=== PATIENT | male | born 1945 | race Caucasian/White ===

== ENCOUNTER → 2016-08-28 | Outpatient (CLI) | payer OTHER | LOC: BHFA 10:30 | PROVIDERS: ATTEND Internal Medicine Cardiovascular Disease | DX: I47.2 Ventricular tachycardia (principal) ==

== ENCOUNTER → 2016-10-28 | Outpatient (CLI) | payer OTHER | LOC: BMCIMAGING 14:50 | PROVIDERS: ATTEND Internal Medicine Rheumatology | DX: M16.0 Bilateral primary osteoarthritis of hip (principal) ==

== ENCOUNTER → 2016-11-17 | Outpatient (CLI) | payer OTHER | LOC: BHFA 13:00 | PROVIDERS: ATTEND Internal Medicine Interventional Cardiology | DX: I25.10 Atherosclerotic heart disease of native coronary artery without angina pectoris (principal); Z79.899 Other long term (current) drug therapy ==

== ENCOUNTER → 2016-12-07 | Outpatient (CLI) | payer OTHER | LOC: FIMAGING 09:57 | PROVIDERS: ATTEND Orthopaedic Surgery | DX: M17.11 Unilateral primary osteoarthritis, right knee (principal); M25.461 Effusion, right knee; Z01.818 Encounter for other preprocedural examination ==

== ENCOUNTER 2016-12-30 06:04 | Observation (INO) | payer OTHER ==
[2016-12-01 11:33] LABS: % IMMATURE GRANULYOCYTES 0.4 % (0.0-1.1); ABSOLUTE IMMATURE GRANULOCYTES 0.02 10^3/uL (0.00-0.10); ADD DIFF? NO; ADD MORPH? NO; ADD SCAN? NO; ATYPICAL LYMPHOCYTE FLAG 40 (0-99); FRAGMENT RBC FLAG 0 (0-99); HEMATOCRIT 43.6 % (40.0-51.0); HEMOGLOBIN 14.5 g/dL (13.7-17.5); LEFT SHIFT FLG 20 (0-99); LIPEMIA HEMOLYSIS FLAG 80 (0-99); MEAN CELL HEMOGLOBIN 29.7 pg (27.9-34.1); MEAN CELL HEMOGLOBIN CONCENTR. 33.3 g/dL (32.4-36.7); MEAN CELL VOLUME 89.3 fL (81.5-99.8); PLATELET CLUMPS FLAG 0 (0-99); PLATELET COUNT 196 10^3/uL (150-400); RED BLOOD CELL COUNT 4.88 10^6/uL (4.40-6.38); RED CELL DISTRIBUTION WIDTH 13.2 % (11.5-15.2)
[2016-12-01 11:57] LABS: ALANINE AMINOTRANSFERASE 32 IU/L (21-72); ALBUMIN 3.9 g/dL (3.5-5.0); ALKALINE PHOSPHATASE 72 IU/L (38-126); ANION GAP 10 mEq/L (8-16); ASPARTATE AMINOTRANSFERASE 20 IU/L (17-59); CALCIUM 9.3 mg/dL (8.5-10.4); CARBON DIOXIDE 25 mEq/l (22-31); CHLORIDE 104 mEq/L (97-110); CREATININE 0.9 mg/dL (0.7-1.3); GLOMERULAR FILTRATION RATE > 60; GLUCOSE 100 mg/dL (70-100); POTASSIUM 3.9 mEq/L (3.5-5.2); SODIUM 139 mEq/L (134-144); TOTAL PROTEIN 6.3 g/dL (6.3-8.2)
[~2016-12-30 06:04] MED LIST: ACETAMINOPHEN 325 MG TAB ONE; ACETAMINOPHEN 325 MG TAB PO ONE; CEFAZOLIN 2 GM/DEXTROSE/100 ML BAG IV ONE; DEXAMETHASONE 4 MG/ML VIAL IVP ONE; DEXAMETHASONE 4 MG/ML VIAL ONE; FAMOTIDINE 20 MG TAB ONE; FAMOTIDINE 20 MG TAB PO ONE; LIDOCAINE 1% 2 ML INJ ONE; ROPIVACAINE 0.2% 80 MG, EPINEPHrine 0.2 MG, KETOROLAC TROMETHAMINE 30 MG in BAG 0 ML IU ONE; TRANEXAMIC ACID 3,000 MG in NS 50 ML IRR ONE; ceFAZolin 2 GM/DEXTROSE 100 ML IV ONE
[2016-12-30] MEDS ORDERED: LIDOCAINE 1% 2 ML INJ ID PRN (06:24)
[2016-12-30] MEDS ORDERED: LR 1,000 ML IV ONE (06:24)
[2016-12-30] MEDS ORDERED: TRANEXAMIC ACID 3,000 MG/50 ML BAG IRR ONE (06:30)
[2016-12-30] MEDS ORDERED: VANCOMYCIN 1 GM VIAL ONE (06:31)
[2016-12-30] MEDS ORDERED: MIDAZOLAM 2 MG/2 ML VIAL IVP ONE (06:55)
--- NOTE | 2016-12-30 06:55 | PDANEPAE ---
ANE History of Present Illness right knee pain ANE Past Medical History - Cardiovascular History Hx Hypertension: Yes Hx Arrhythmias: No Hx Chest Pain: No Hx Coronary Artery / Peripheral Vascular Disease: No Hx CHF / Valvular Disease: No Hx Palpitations: No Cardiovascular History Comment: on rx for HTN. heart cath for irrhythmias in 2003.no CAD. no prob now - Pulmonary History Hx COPD: No Hx Asthma/Reactive Airway Disease: No Hx Recent Upper Respiratory Infection: No Hx Oxygen in Use at Home: No Hx Sleep Apnea: No Sleep Apnea Screening Result - Last Documented: Positive Pulmonary History Comment: no sob w/2 fl stairs - Neurologic History Hx Cerebrovascular Accident: No Hx Seizures: No Hx Dementia: No Neurologic History Comment: Peripheral neuropathy legs. - Endocrine History Hx Diabetes: No - Renal History Hx Renal Disorders: No - Liver History Hx Hepatic Disorders: No - Neurological & Psychiatric Hx Hx Neurological and Psychiatric Disorders: No - Cancer History Hx Cancer: No - Congenital Disorder History Hx Congenital Disorders: No - GI History Hx Gastrointestinal Disorders: Yes Gastrointestinal History Comment: gerd - Other Health History Other Health History: Profound bilateral hearing loss-aids. Arthritis in joints. Binign enlarged prostate. - Chronic Pain History Chronic Pain: Yes (bilat shoulders) - Surgical History Prior Surgeries: arm fx 1951 ANE Review of Systems - Exercise capacity METS (RN): 4 METS ANE Patient History - Allergies Allergies/Adverse Reactions: lisinopril Allergy (Verified 11/20/16 10:27) Other-Enter Comments - Home Medications Home Medications: RX: Hydrochlorothiazide [HCTZ (*)] 6.25 mg PO DAILY 10/11/15 [Last Taken ] RX: Simvastatin [Zocor] 10 mg PO HS 10/11/15 [Last Taken 01/02/16] RX: Aspirin [Aspirin 81mg (*)] 81 mg PO DAILY 01/03/16 [Last Taken 12/16/16] RX: Herbals/Supplements -Info Only 1 ea PO DAILY 01/03/16 [Last Taken Unknown] RX: Ibuprofen [Motrin (*)] 200 mg PO DAILY PRN 01/03/16 [Last Taken Unknown] RX: Multivitamins [Multivitamin (*)] 1 each PO DAILY 01/03/16 [Last Taken Unknown] RX: Addison-3 Fatty Acids [Fish Oil 1000 mg (*)] 1,000 mg PO DAILY 01/03/16 [Last Taken Unknown] RX: Ranitidine HCl [Zantac] 150 mg PO BID 01/03/16 [Last Taken 01/02/16 18:00] RX: Tadalafil [Cialis] 20 mg PO DAILY PRN 01/03/16 [Last Taken Unknown] Amiodarone HCl [Pacerone] 100 mg PO DAILY 11/20/16 [Last Taken Unknown] Nabumetone [RELAFEN 750MG (*)] 750 mg PO BIDMEAL 11/20/16 [Last Taken Unknown] RX: Losartan Potassium [Cozaar 25 mg (*)] 12.5 mg PO DAILY 11/20/16 [Last Taken Unknown] traZODone [traZODone 150MG (*)] 75 mg PO HS 11/20/16 [Last Taken Unknown] - NPO status NPO Since - Liquids (Date): 12/29/16 NPO Since - Liquids (Time): 22:30 NPO Since - Solids (Date): 12/29/16 NPO Since - Solids (Time): 22:00 - Smoking Hx Smoking Status: Former smoker - Family Anes Hx Family Hx Anesthesia Complications: none ANE Labs/Vital Signs - Labs Result Diagrams: 12/01/16 11:15 12/01/16 11:06 - Vital Signs Blood Pressure: 130/78 Heart Rate: 54 Respiratory Rate: 16 O2 Sat (%): 90 Height: 182.88 cm Weight: 90.718 kg ANE Physical Exam - Airway Neck exam: FROM Mallampati Score: Class 2 Mouth exam: normal dental/mouth exam - Pulmonary Pulmonary: no respiratory distress - Cardiovascular Cardiovascular: regular rate and rhythym - ASA Status ASA Status: III ANE Anesthesia Plan Anesthesia Plan: spinal Regional Anesthesia: single shot NB, adductor canal FNB
[2016-12-30] MEDS ORDERED: BUPIVACAINE 0.5% 30 ML SDV ONE (06:57)
[2016-12-30] MEDS ORDERED: PROPOFOL 200 MG/20 ML VIAL ONE ×4 (07:00→08:12)
--- NOTE | 2016-12-30 07:09 | PDHPUP ---
History & Physical Update H&P update statement: This history and physical update is based on an assessment of the patient which was completed after admission or registration (within 24 hours), but prior to the surgery/procedure. H&P update: H&P reviewed & patient examined, no change in patient's condition since H&P completed
[2016-12-30] MEDS ORDERED: OXYCODONE/APAP 5/325 TAB PO PRN (08:19)
[2016-12-30] MEDS ORDERED: ONDANSETRON 4 MG/2 ML VIAL IVP PRN ×2 (08:19→09:23)
[2016-12-30] MEDS ORDERED: ACETAMINOPHEN 500 MG TAB PO PRN (08:19)
[2016-12-30] MEDS ORDERED: LR 500 ML IV PRN (08:19)
[2016-12-30] MEDS ORDERED: HYDROmorphONE/DILAUDID 1 MG/ML SYR IVP PRN (08:19)
[2016-12-30] MEDS ORDERED: fentaNYL 100 MCG/2 ML INJ IVP PRN (08:19)
[2016-12-30] MEDS ORDERED: NALOXONE HCL 0.4 MG/ML INJ IVP PRN (08:19)
--- NOTE | 2016-12-30 08:52 | POSTANESTH ---
Post Anesthetic Evaluation Cardiovascular Status: Normal, Stable Respiratory Status: Normal, Stable Level of Consciousness/Mental Status: Can Participate in Eval Pain Control: Adequate, Prn Tx Ordered Nausea/Vomiting Control: Adequate, Prn Tx Ordered Complications Possibly Related to Anesthesia: None Noted
[2016-12-30] MEDS ORDERED: TEMAZEPAM 15 MG CAP PO PRN (09:23)
[2016-12-30] MEDS ORDERED: PHARMACY PAIN CONSULT 1 EA MISC PRN (09:23)
[2016-12-30] MEDS ORDERED: POLYETHYLENE GLYCOL 3350 17 GM PKT PO PRN (09:23)
[2016-12-30] MEDS ORDERED: MAGNESIUM HYDROXIDE 30 ML UDCUP PO PRN (09:23)
[2016-12-30] MEDS ORDERED: CYCLOBENZAPRINE 10 MG TAB PO PRN (09:23)
[2016-12-30] MEDS ORDERED: PROMETHAZINE HCL 25 MG SUPPR PR PRN (09:23)
[2016-12-30] MEDS ORDERED: PROMETHAZINE HCL 25 MG/ML INJ IVP PRN (09:23)
[2016-12-30] MEDS ORDERED: DIPHENOXYLATE/ATROPINE LOMOTIL 1 TAB PO PRN (09:23)
[2016-12-30] MEDS ORDERED: BISACODYL 10 MG SUPP PR PRN (09:23)
[2016-12-30] MEDS ORDERED: METOCLOPRAMIDE 10 MG/2 ML VIAL IVP PRN (09:23)
[2016-12-30] MEDS ORDERED: ONDANSETRON DISINTEGRATING 4 MG TAB PO PRN (09:23)
[2016-12-30] MEDS ORDERED: oxyCODONE IR 5 MG TAB PO PRN (09:23)
[2016-12-30] MEDS ORDERED: diphenhydrAMINE 25 MG CAP PO PRN (09:23)
[2016-12-30] MEDS ORDERED: LACTULOSE 20 GM/30 ML UDCUP PO PRN (09:23)
--- NOTE | 2016-12-30 09:23 | POSTOPPROG ---
Post Op Note Date of Operation: 12/30/16 Surgeon: Gloria Reyes Actuary Clerk: mateo reyes Anesthesiologist: dr. rush Anesthesia: Spinal, Other (Specify) Pre-op Diagnosis: right knee OA Post-op Diagnosis: same Indication: right knee pain due to OA that failed conservative measures Procedure: R med MPL Findings: severe medial kene OA Inf/Abcess present in the surg proc area at time of surgery?: No EBL: 50-100
[2016-12-30] MEDS ORDERED: LR 1,000 ML IV SCH (09:30)
[2016-12-30] MEDS: ACETAMINOPHEN 325 MG TAB PO SCH ×3 (10:32→23:50)
[2016-12-30] MEDS: ceFAZolin 2 GM/DEXTROSE 100 ML IV SCH ×2 (13:39→22:18)
[2016-12-30] MEDS: NABUMETONE 750 MG TAB PO SCH (17:46)
[2016-12-30] MEDS ORDERED: NON-FORMULARY NEW DRUG (Ranitidine Hcl [Zantac] 150 MG) PO SCH (21:00)
[2016-12-30] MEDS ORDERED: PRAVASTATIN SODIUM 20 MG TAB PO SCH (21:00)
[2016-12-30] MEDS: SENNOSIDES/DOCUSATE SODIUM TAB PO SCH (21:08)
[2016-12-30] MEDS: FAMOTIDINE 20 MG TAB PO SCH (21:09)
[2016-12-30] MEDS: ASPIRIN 325 MG TAB PO SCH (22:17)
[2016-12-31 05:06] LABS: HEMATOCRIT 39.2 % (40.0-51.0); HEMOGLOBIN 13.3 g/dL (13.7-17.5)
[2016-12-31] MEDS: ACETAMINOPHEN 325 MG TAB PO SCH (05:15)
[2016-12-31 07:24] VITALS: BP 123/64; PULSE 50; RESP 12; TEMP 98.1; O2SAT 95
[2016-12-31] MEDS: FAMOTIDINE 20 MG TAB PO SCH (08:16)
[2016-12-31] MEDS: ASPIRIN 325 MG TAB PO SCH (08:16)
[2016-12-31] MEDS: NABUMETONE 750 MG TAB PO SCH (08:17)
[2016-12-31] MEDS: SENNOSIDES/DOCUSATE SODIUM TAB PO SCH (08:19)
[2016-12-31] MEDS ORDERED: LOSARTAN POTASSIUM 25 MG TAB PO SCH (09:00)
[2016-12-31] MEDS ORDERED: AMIODARONE HCL 200 MG TAB PO SCH (09:00)
[2016-12-31] MEDS ORDERED: HYDROCHLOROTHIAZIDE 12.5 MG CAP PO SCH (09:00)
--- NOTE | 2016-12-31 10:43 | SOAPPROG ---
SOAP Progress Note Assessment/Plan: Assessment: Patient is doing well POD 1 s/p R med MPL Pain management: pain is well controlled on oral pain meds. VTE ppx: recommend aspirin daily for 3 weeks, cont DEEP and SCDs Anemia: level is expected initially postop. Asymptomatic. Continue to monitor D/c planning: d/c to home today pending release from PT Plan: 12/31/16 10:42 Subjective: Sunny is doing well today, denies SOB, chest pain and N/V Objective: Vital Signs Temp Pulse Resp BP Pulse Ox 36.7 C 50 L 12 123/64 H 95 12/31/16 07:23 12/31/16 07:23 12/31/16 07:23 12/31/16 07:23 12/31/16 07:23 Laboratory Results 12/31/16 04:44 12/01/16 11:06 12/30/16 12/31/16 01/01/17 05:59 05:59 05:59 Intake Total 2049 Output Total 980 450 Balance 1070 -450 RLE: incision dresisng is clean and dry, NVI, +pf/df ICD10 Worksheet Patient Problems: Problems Problem Status Onset Primary localized osteoarthritis of right knee Acute
--- NOTE | 2017-01-01 13:16 | GDS ---
[f rep st] DISCHARGE SUMMARY ADMISSION DIAGNOSIS: Right knee osteoarthritis. DISCHARGE DIAGNOSIS: Right knee osteoarthritis. PROCEDURE: Right partial knee arthroplasty, medial compartment, robot-assisted. VTE PROPHYLAXIS: Aspirin recommended 3 weeks, daily. BRIEF DESCRIPTION OF HOSPITAL STAY: Patient was admitted for an elective joint arthroplasty. The p atient tolerated the procedure well and has passed physical therapy. The patient was given appropri ate antibiotic prophylaxis and venous thromboembolism prophylaxis. The patient's pain was well cont rolled on oral pain medication, patient was holding down food, and had urinated. Decision was made to discharge the patient. The patient was given post-operative prescriptions pre-operatively. PLAN: To follow up with Dr. Loaiza at [facility], scheduled January 26 at 10 :15 a.m. /[id number]/MODL
--- NOTE | 2017-01-01 20:02 | GOP ---
[f rep st] OPERATIVE REPORT DATE OF OPERATION: 12/30/2016 SURGEON: Laine Loaiza MD PREOPERATIVE DIAGNOSIS: Right knee osteoarthritis. POSTOPERATIVE DIAGNOSIS: Right knee osteoarthritis. PROCEDURE PERFORMED: Right medial compartment partial knee replacement with computer navigation and robotic assist. FINDINGS: INDICATIONS: This is a 71-year-old male with severe and progressive pain and deformity of the right knee unresponsive to conservative care. The risks and benefits of surgical intervention were explai guille in detail. DESCRIPTION OF PROCEDURE: Incorrect template, requested "RUT uni-knee." PATHOLOGY: Severe medial compartment osteoarthritis. /[id number]/MODL
== END 2016-12-31 11:53 | disposition home or self-care (01) ==
LOC: F3N 06:04 → INTOOBSV 06:04 → F3N 09:58
PROVIDERS: ADMIT Orthopaedic Surgery; ATTEND Orthopaedic Surgery
PROC: 8E0YXBZ Computer Assisted Procedure of Lower Extremity (ICD-10-PCS; principal; 2016-12-30 07:15)
PROC: 0SRC0JZ Replacement of Right Knee Joint with Synthetic Substitute, Open Approach (ICD-10-PCS; principal; 2016-12-30 07:15)
DX: M17.11 Unilateral primary osteoarthritis, right knee (principal); M25.561 Pain in right knee; I49.9 Cardiac arrhythmia, unspecified; I10 Essential (primary) hypertension; H91.93 Unspecified hearing loss, bilateral; N40.0 Benign prostatic hyperplasia without lower urinary tract symptoms; Z87.891 Personal history of nicotine dependence
CPT/HCPCS: 20985; 27446; 73560; 97116; 97161; 97165; C1713; C1776; G8978; G8979; G8980; G8987; G8988; J0171; J0690; J1100; J1885; J2250; J2704; J2795; J3370

== ENCOUNTER → 2017-03-01 | Outpatient (CLI) | payer OTHER ==
[~2017-03-01] MED LIST changes: -ACETAMINOPHEN 325 MG TAB ONE; -ACETAMINOPHEN 325 MG TAB PO ONE; -CEFAZOLIN 2 GM/DEXTROSE/100 ML BAG IV ONE; -DEXAMETHASONE 4 MG/ML VIAL IVP ONE; -DEXAMETHASONE 4 MG/ML VIAL ONE; -FAMOTIDINE 20 MG TAB ONE; -FAMOTIDINE 20 MG TAB PO ONE; +IOPAMIDOL (ISOVUE-300) 100 ML BTL ONE; -LIDOCAINE 1% 2 ML INJ ONE; -ROPIVACAINE 0.2% 80 MG, EPINEPHrine 0.2 MG, KETOROLAC TROMETHAMINE 30 MG in BAG 0 ML IU ONE; -TRANEXAMIC ACID 3,000 MG in NS 50 ML IRR ONE; -ceFAZolin 2 GM/DEXTROSE 100 ML IV ONE
== END ==
LOC: FIMAGING 11:34
PROVIDERS: ATTEND Family Medicine
DX: K57.32 Diverticulitis of large intestine without perforation or abscess without bleeding (principal); K44.9 Diaphragmatic hernia without obstruction or gangrene; N28.1 Cyst of kidney, acquired; R93.2 Abnormal findings on diagnostic imaging of liver and biliary tract; N40.0 Benign prostatic hyperplasia without lower urinary tract symptoms; K40.90 Unilateral inguinal hernia, without obstruction or gangrene, not specified as recurrent
CPT/HCPCS: 74177; Q9967

== ENCOUNTER → 2017-11-12 | Outpatient (CLI) | payer OTHER | LOC: BHFA 13:15 | PROVIDERS: ATTEND Internal Medicine Cardiovascular Disease | DX: R07.9 Chest pain, unspecified (principal); I25.10 Atherosclerotic heart disease of native coronary artery without angina pectoris; I47.2 Ventricular tachycardia ==

== ENCOUNTER → 2017-11-18 | Outpatient (CLI) | payer OTHER | LOC: BHLMT 13:30 | PROVIDERS: ATTEND Internal Medicine Cardiovascular Disease | DX: Z01.810 Encounter for preprocedural cardiovascular examination (principal); I25.10 Atherosclerotic heart disease of native coronary artery without angina pectoris | CPT/HCPCS: 78452; 93017; A9500 ==

== ENCOUNTER 2017-11-22 10:33 | Day surgery (SDC) | payer OTHER ==
--- NOTE | 2017-11-22 10:09 | PDANEPAE ---
ANE Past Medical History - Cardiovascular History Hx Hypertension: Yes Hx Arrhythmias: No Hx Chest Pain: Yes Hx Coronary Artery / Peripheral Vascular Disease: No Hx CHF / Valvular Disease: No Hx Palpitations: No Cardiovascular History Comment: 11/10/17 CHEST PAIN WAS SEEN BY CARDILOGIST 2017 TO HAVE A STRESS TEST 11/18/2017 - Pulmonary History Hx COPD: No Hx Asthma/Reactive Airway Disease: No Hx Recent Upper Respiratory Infection: No Hx Oxygen in Use at Home: No Hx Sleep Apnea: No Sleep Apnea Screening Result - Last Documented: Positive Pulmonary History Comment: no sob w/2 fl stairs - Neurologic History Hx Cerebrovascular Accident: No Hx Seizures: No Hx Dementia: No Neurologic History Comment: Peripheral neuropathy legs. - Endocrine History Hx Diabetes: No Hypothyroid: No Hyperthyroid: No Obesity: no - Renal History Hx Renal Disorders: Yes Renal History Comment: FREQUENCY. NOCTURIA. ED. HX PROSTATE CA - Liver History Hx Hepatic Disorders: No - Neurological & Psychiatric Hx Hx Neurological and Psychiatric Disorders: No - Cancer History Hx Cancer: Yes Cancer History Comment: PROSTATE - Congenital Disorder History Hx Congenital Disorders: No - GI History GERD: moderate Hx Gastrointestinal Disorders: Yes Gastrointestinal History Comment: gerd. HX OF COLON POLYPS - Other Health History Other Health History: Profound bilateral hearing loss-aids. Arthritis in joints. LT SHLDR DISCOMFORT. OCCASIONAL LOW BACK PAIN - Chronic Pain History Chronic Pain: Yes (LT SHLDR,LEANNE ING AREAS) - Surgical History Prior Surgeries: COLONOSCOPY/EGD. RT KNEE RESURFACING 12/2016. LT KNEE SCOOE. RT SHLDR SCOPE. arm fx 1951 ANE Review of Systems Review of Systems: - Exercise capacity METS (RN): 6 METS ANE Patient History - Allergies Allergies/Adverse Reactions: lisinopril Allergy (Verified 11/20/16 10:27) Other-Enter Comments - Home Medications Home Medications: Simvastatin [Zocor] 10 mg PO HS 10/11/15 [Last Taken 11/21/17] Herbals/Supplements -Info Only 1 ea PO DAILY 01/03/16 [Last Taken 11/15/17] Multivitamins [Multivitamin (*)] 1 each PO DAILY 01/03/16 [Last Taken 11/15/17] Drewsey-3 Fatty Acids [Fish Oil 1000 mg (*)] 1,000 mg PO DAILY 01/03/16 [Last Taken 11/15/17] Ranitidine HCl [Zantac] 150 mg PO DAILY 01/03/16 [Last Taken 11/22/17] Tadalafil [Cialis] 20 mg PO DAILY PRN 01/03/16 [Last Taken 11/15/17] Losartan Potassium [Cozaar 25 mg (*)] 12.5 mg PO HS 11/20/16 [Last Taken ] traZODone [traZODone 150MG (*)] 75 mg PO HS 11/20/16 [Last Taken 11/21/17] Dutasteride HS 11/12/17 [Last Taken 11/22/17] - Anes Hx Anes Hx: no prior problems - Smoking Hx Smoking Status: Former smoker Marijuana use: No - Alcohol Use Alcohol Use: Occasionally - Family Anes Hx Family Anes Hx: neg - N/A Family Hx Anesthesia Complications: none ANE Labs/Vital Signs - Vital Signs Height: 182.88 cm Weight: 90.718 kg ANE Physical Exam - Airway Neck exam: FROM Mallampati Score: Class 2 Mouth exam: normal dental/mouth exam - Pulmonary Pulmonary: no respiratory distress, no rales or rhonchi, clear to auscultation - Cardiovascular Cardiovascular: no murmur, rub, or gallop, bradycardia ANE Anesthesia Plan Anesthesia Plan: general endotracheal anesthesia Total IV Anesthesia: No
[~2017-11-22 10:33] MED LIST changes: +BUPIVACAINE/EPI 0.5% 30 ML SDV ONE; -IOPAMIDOL (ISOVUE-300) 100 ML BTL ONE
[2017-11-22] MEDS ORDERED: ceFAZolin 2 GM/DEXTROSE 100 ML IV ONE (10:57)
[2017-11-22] MEDS ORDERED: LR 1,000 ML IV ONE (10:59)
[2017-11-22] MEDS ORDERED: ROCURONIUM 50 MG/5 ML VIAL ONE (12:16)
[2017-11-22] MEDS ORDERED: DEXAMETHASONE 4 MG/ML VIAL ONE (12:16)
[2017-11-22] MEDS ORDERED: LIDOCAINE 2% 5 ML SDV ONE (12:16)
[2017-11-22] MEDS ORDERED: ONDANSETRON 4 MG/2 ML VIAL ONE (12:16)
[2017-11-22] MEDS ORDERED: fentaNYL 100 MCG/2 ML INJ ONE ×2 (12:19→15:24)
[2017-11-22] MEDS ORDERED: PROPOFOL 200 MG/20 ML VIAL ONE ×3 (12:20→14:17)
[2017-11-22] MEDS ORDERED: ePHEDrine SULFATE 25 MG/5 ML SYR ONE (12:40)
[2017-11-22] MEDS ORDERED: GLYCOPYRROLATE 0.2 MG/1 ML VIAL ONE ×4 (12:48→14:39)
[2017-11-22] MEDS ORDERED: NALOXONE HCL 0.4 MG/ML INJ IVP PRN (12:55)
[2017-11-22] MEDS ORDERED: LR 500 ML IV PRN (12:55)
[2017-11-22] MEDS ORDERED: ONDANSETRON 4 MG/2 ML VIAL IVP PRN (12:55)
[2017-11-22] MEDS ORDERED: PHENYLEPHRINE HCL 100 MCG/ML SYR IVP PRN (12:55)
[2017-11-22] MEDS ORDERED: oxyCODONE IR 5 MG TAB PO PRN ×2 (12:55→15:02)
[2017-11-22] MEDS ORDERED: ACETAMINOPHEN 500 MG TAB PO PRN ×2 (12:55→15:02)
[2017-11-22] MEDS ORDERED: HYDROCODONE/APAP 5/325 TAB PO PRN ×2 (12:55→15:02)
[2017-11-22] MEDS ORDERED: fentaNYL 100 MCG/2 ML INJ IVP PRN ×2 (12:55→15:02)
[2017-11-22] MEDS ORDERED: REMIFENTANIL HCL 1 MG VIAL ONE (13:23)
[2017-11-22] MEDS ORDERED: KETOROLAC 30 MG/1 ML SDV ONE (14:39)
--- NOTE | 2017-11-22 15:09 | POSTOPPROG ---
Post Op Note Date of Operation: 11/22/17 Surgeon: Zoran Sloan Hospital Administrator: EMANUEL Durham Anesthesiologist: Chencho Anesthesia: GET(General Endotracheal) Pre-op Diagnosis: Bilateral inguinal hernias Post-op Diagnosis: same Procedure: Robotic assisted addie lap inguinal hernia repair with mesh Findings: addie indirect hernias Inf/Abcess present in the surg proc area at time of surgery?: No EBL: Minimal
[2017-11-22 16:05] VITALS: BP 119/67
[2017-11-22] MEDS ORDERED: oxyCODONE IR 5 MG TAB ONE ×2 (16:10→16:34)
--- NOTE | 2017-11-22 16:53 | GOP ---
[f rep st] OPERATIVE REPORT DATE OF OPERATION: 11/22/2017 SURGEON: Zoran Sloan MD FIELD HUMAN RESOURCES MANAGER: Riri Serrano, Nurse practitioner. ANESTHESIA: General endotracheal. ANESTHESIOLOGIST: Dr. Paiz. PREOPERATIVE DIAGNOSIS: Bilateral inguinal hernias. POSTOPERATIVE DIAGNOSIS: Bilateral inguinal hernias. PROCEDURE PERFORMED: Robotic assisted laparoscopic bilateral inguinal hernia repair with mesh. FINDINGS: Large indirect hernias on either side, repaired with Bard 3D Light large-size mesh. SPECIMENS: None. ESTIMATED BLOOD LOSS: 5 cc. DESCRIPTION OF PROCEDURE: The patient was greeted in the preoperative suite, and once again, risks, benefits, and alternatives were discussed. Consent was signed. He was then brought back to the oper ative suite, placed on the OR table in supine position. After all anesthesia machines, including SCD s were on and functioning, World Health [employer] time-out was performed. After successful induct ion of general anesthesia, the patient's abdomen was prepped and draped in typical sterile fashion. I entered the abdomen via a supraumbilical cutdown through which the Veress needle was passed. I ach ieved pneumoperitoneum to 15 mmHg CO2, which was well tolerated by the patient. Through this, I inse rted an 8 mm trocar. Once successfully in the abdomen, I inserted 2 additional 8 mm trocars, 1 in th e right and 1 in the left upper quadrant, both under direct visualization. The patient was then plac ed in gentle Trendelenburg position and the robot was successfully docked. I turned my attention first toward the patient's right side, where a large indirect defect was visual ly apparent. I created my preperitoneal flap just adjacent medially to the ASIS. I carried my disse ction medial to the pubic tubercle. I dissected down to Waqar ligament medially, as well as the ext ent of the dissection laterally. I successfully reduced and skeletonized the cord structures off the hernia sac and reduced it completely back into the abdomen. I then made a pocket for my mesh, which was then brought in. It was tacked to Waqar ligament with a single interrupted 2-0 Vicryl stitch, 1 on either side of the inferior epigastrics. The peritoneal flap was then closed with a running V-L oc suture. In the same fashion, I turned my attention toward the left side. Again, the pocket was made from the extent of just medial to the ASIS, all the way to the pubic tubercle. Again, there was a fairly siz able indirect defect. The hernia sac was completely reduced. I did interrogate both the femoral and direct spaces on both sides and found no significant findings. The same Bard 3D Light mesh was chantal ched to Waqar ligament on the left side, as well as on either side of the inferior epigastric vessel s. The peritoneal flap was closed in the same fashion with a running V-Loc suture. Pneumoperitoneum was then evacuated. The robot was undocked. I closed the skin with 4-0 Monocryl ov er which Dermabond was placed. The patient was then extubated in the operative suite and taken to e PACU in satisfactory condition. DRAINS: None. COUNTS: All counts were reported as correct x2. /[id number]/MODL
== END 2017-11-22 17:46 | disposition home or self-care (01) ==
LOC: FSGY 10:33
PROVIDERS: ATTEND Surgery
PROC: 0YUA4JZ Supplement Bilateral Inguinal Region with Synthetic Substitute, Percutaneous Endoscopic Approach (ICD-10-PCS; principal; 2017-11-22 12:00)
DX: K40.20 Bilateral inguinal hernia, without obstruction or gangrene, not specified as recurrent (principal); I25.10 Atherosclerotic heart disease of native coronary artery without angina pectoris; I10 Essential (primary) hypertension; I47.2 Ventricular tachycardia; E78.5 Hyperlipidemia, unspecified; Z87.891 Personal history of nicotine dependence; Z85.46 Personal history of malignant neoplasm of prostate
CPT/HCPCS: 49650; S2900; C1781; J0690; J1100; J1885; J2405; J2704; J3010